=== PATIENT | female | born 1980 | race African-American/Black ===

== ENCOUNTER 2018-12-29 13:09 | Emergency (ER) | payer OTHER ==
[2018-12-29 13:23] VITALS: BMI 36.5
--- NOTE | 2018-12-29 14:53 | PDOC ---
History of Present Illness - General Chief Complaint: Pain Stated Complaint: ABD PAIN, POSSIBLE LMP 12/04/18 Time Seen by Provider: 12/29/18 14:29 History Source: Patient - History of Present Illness Timing/Duration: reports: other Quality: reports: moderate Abdominal Pain Onset Location: reports: suprapubic Past History - Past Medical History Allergies/Adverse Reactions: Allergies Allergy/AdvReac Type Severity Reaction Status Date / Time No Known Allergies Allergy Verified 12/29/18 13:23 Home Medications: Ambulatory Orders NK [No Known Home Medication] 12/29/18 Asthma: Yes Cancer: No Cardiac Disorders: No COPD: No Diabetes: No HTN: No Psychiatric Problems: Yes (depression) Seizures: No Thyroid Disease: No - Reproductive History (#): 5 Para: 4 - Suicide/Smoking/Psychosocial Hx Smoking Status: Yes Smoking History: Never smoked Number of Cigarettes Smoked Daily: 5 Information on smoking cessation initiated: No Hx Alcohol Use: No Drug/Substance Use Hx: No Substance Use Type: None Hx Substance Use Treatment: No Review of Systems - Review of Systems Constitutional: No: Chills, Fever ABD/GI: Yes: Abdominal cramping. No: Constipated, Diarrhea, Nausea, Vomiting : No: Burning, Dysuria, Flank Pain, Hematuria *Physical Exam - Vital Signs Last Vital Signs Temp Pulse Resp BP Pulse Ox 97.3 F L 85 19 144/87 100 12/29/18 13:20 12/29/18 13:20 12/29/18 13:20 12/29/18 13:20 12/29/18 13:20 - Physical Exam General Appearance: Yes: Appropriately Dressed. No: Apparent Distress HEENT: positive: Normal Voice Neck: positive: Supple Respiratory/Chest: negative: Respiratory Distress Gastrointestinal/Abdominal: positive: Normal Bowel Sounds, Tender, Soft. negative: Distended, Guarding, Rebound Musculoskeletal: negative: CVA Tenderness Integumentary: positive: Dry, Warm Neurologic: positive: Fully Oriented, Alert, Normal Mood/Affect Moderate Sedation - Procedure Monitoring Vital Signs: Procedure Monitoring Vital Signs Temperature 97.3 F L 12/29/18 13:20 Pulse Rate 85 12/29/18 13:20 Respiratory Rate 19 12/29/18 13:20 Blood Pressure 144/87 12/29/18 13:20 O2 Sat by Pulse Oximetry (%) 100 12/29/18 13:20 ED Treatment Course - LABORATORY CBC & Chemistry Diagram: 12/29/18 16:37 12/29/18 16:37 - RADIOLOGY Radiology Studies Ordered: Category Date Time Status TRANSVAGINAL US PREG [US] Stat Ultrasound 12/29/18 14:32 Ordered Medical Decision Making - Medical Decision Making 12/29/18 14:50 38 yo morbidly obesed F, , states she has been having intermittent LLQ pain 1 week. No dysuria, hematuria, nausea, vomiting, fever, chills or change in bowel movements. States she went to [facility] last week and was told she was , but no ultrasound was done so here requesting ultrasound See exam Persistent LLQ pain +preg test at [facility] last week per pt but no US done per pt Stable and well shalini w/ +ttp to LLQ R/o ectopic -labs -US 12/29/18 15:47 Beta quant neg here. UA w/ no e/o infection. Pt informed and continues to c/o LLQ pain. Will perform further w/u in ED including CT scan r/o diverticulitis 12/29/18 19:10 Pt signed out to BETTY Jain pending CT read *DC/Admit/Observation/Transfer Diagnosis at time of Disposition: Abdominal pain Qualifiers: Abdominal location: unspecified location Qualified Code(s): R10.9 - Unspecified abdominal pain - Referrals Referrals: Paula Kan [Primary Care Provider] - - Patient Instructions Additional Instructions: Y - Post Discharge Activity
[2018-12-29 15:26] LABS: URINE APPEARANCE SLCLOUDY; URINE BILIRUBIN NEGATIVE (<2.0 mg/dL); URINE COLOR YELLOW; URINE GLUCOSE (UA) NEGATIVE (NEGATIVE); URINE KETONE NEGATIVE (NEGATIVE); URINE LEUK ESTERASE NEGATIVE (NEGATIVE); URINE NITRITE NEGATIVE (NEGATIVE); URINE PROTEIN 1+ (NEGATIVE)
[2018-12-29 15:27] LABS: EPI CELLS MODERATE /HPF (FEW); URINE MUCUS RARE
[2018-12-29] MEDS ORDERED: ACETAMINOPHEN 1000 MG/100 ML VIAL (NON FORMULARY) IVPB ONE (16:38)
[2018-12-29] MEDS ORDERED: ACETAMINOPHEN INJECTION 100 ML IVPB ONE (16:42)
[2018-12-29 16:46] LABS: BASO % 0.6 % (0-2.0); EOS % 1.6 % (0-4.5); HEMATOCRIT 37.3 % (32.4-45.2); HEMOGLOBIN 12.2 GM/dL (10.7-15.3); MCH 29.2 pg (25.7-33.7); MCHC 32.8 g/dl (32.0-36.0); MEAN PLT VOLUME 7.9 fl (7.5-11.1); MONO % 6.2 % (3.8-10.2); NEUT % 37.6 % (42.8-82.8); PLATELET COUNT 241 K/MM3 (134-434); RBC 4.19 M/mm3 (3.60-5.2); RDW 16.1 % (11.6-15.6); WHITE BLOOD COUNT 4.9 K/mm3 (4.0-10.0)
[2018-12-29 17:08] LABS: ALBUMIN 3.4 g/dl (3.4-5.0); ALK PHOS 67 U/L (45-117); ANION GAP 6 MMOL/L (8-16); BILIRUBIN,TOTAL 0.3 mg/dL (0.2-1); BLOOD UREA NITROGEN 9 mg/dL (7-18); CALCIUM 8.4 mg/dL (8.5-10.1); CHLORIDE 105 mmol/L (98-107); CO2 30 mmol/L (21-32); CREATININE 0.8 mg/dL (0.55-1.3); GLUCOSE,RANDOM 81 mg/dL (74-106); POTASSIUM 4.1 mmol/L (3.5-5.1); SGOT/AST 20 U/L (15-37); SGPT/ALT 19 U/L (13-61); SODIUM 140 mmol/L (136-145); TOT PROT 7.8 g/dl (6.4-8.2)
--- NOTE | 2018-12-29 20:32 | PDOC ---
*Physical Exam - Vital Signs Last Vital Signs Temp Pulse Resp BP Pulse Ox 97.8 F 83 20 135/89 100 12/29/18 18:34 12/29/18 18:34 12/29/18 18:34 12/29/18 18:34 12/29/18 18:34 - Physical Exam General Appearance: Yes: Appropriately Dressed Respiratory/Chest: positive: Lungs Clear, Normal Breath Sounds, Respiratory Distress Gastrointestinal/Abdominal: positive: Normal Bowel Sounds, Tender, Soft ED Treatment Course - LABORATORY CBC & Chemistry Diagram: 12/29/18 16:37 12/29/18 16:37 - ADDITIONAL ORDERS Additional order review: Laboratory Results 12/29/18 12/29/18 12/29/18 16:37 15:00 15:00 Sodium 140 Potassium 4.1 Chloride 105 Carbon Dioxide 30 Anion Gap 6 L BUN 9 Creatinine 0.8 Creat Clearance w eGFR > 60 Random Glucose 81 Calcium 8.4 L Total Bilirubin 0.3 AST 20 ALT 19 Alkaline Phosphatase 67 Total Protein 7.8 Albumin 3.4 Beta HCG, Quant < 1.0 Urine Color Yellow Urine Appearance Slcloudy Urine pH 8.0 D Ur Specific Ina 1.021 Urine Protein 1+ H Urine Glucose (UA) Negative Urine Ketones Negative Urine Blood Negative Urine Nitrite Negative Urine Bilirubin Negative Urine Urobilinogen 2.0 H Ur Leukocyte Esterase Negative Urine WBC (Auto) <1 Urine RBC (Auto) 1 Ur Epithelial Cells Moderate Urine Mucus Rare 12/29/18 16:37 RBC 4.19 MCV 89.0 MCHC 32.8 RDW 16.1 H MPV 7.9 Neutrophils % 37.6 L D Lymphocytes % 54.0 H D Monocytes % 6.2 Eosinophils % 1.6 Basophils % 0.6 - Medications Given in the ED: ED Medications Discontinued Medications Generic Name Dose Route Start Last Admin Trade Name Freq PRN Reason Stop Dose Admin Acetaminophen 1,000 mg 12/29/18 16:38 12/29/18 16:45 Ofirmev Injection - IVPB 12/29/18 16:39 1,000 mg ONCE ONE Administration Medical Decision Making - Medical Decision Making 12/29/18 20:27 CT abdomen no acute finding. incidental findings discussed. will d/c home. stool burden noted. 12/29/18 20:28 miralax prescribed. patient d/c home. 12/29/18 20:55 *DC/Admit/Observation/Transfer Diagnosis at time of Disposition: Constipation Abdominal pain Qualifiers: Abdominal location: unspecified location Qualified Code(s): R10.9 - Unspecified abdominal pain - Discharge Dispostion Disposition: HOME - Prescriptions Prescriptions: Polyethylene Glycol 3350 [Miralax (For Daily Use) -] 17 gm PO DAILY #1 bottle - Referrals Referrals: Paula Kan [Primary Care Provider] - Call tomorrow - Patient Instructions Printed Discharge Instructions: Bulking Up on Fiber Additional Instructions: drink plenty of fluids. take miralax as prescribed. follow up with your doctor Additional Instructions: * Please call your personal physician to report your Emergency Department visit and to report your progress, if any. * If there is no improvement in symptoms in 2 days call your physician. * Return to the Emergency Department for any worsening symptoms. - Post Discharge Activity Forms/Work/School Notes: Back to Work
[2018-12-29 20:50] VITALS: BP 129/79; PULSE 79; TEMP 97.9
== END 2018-12-29 21:09 | disposition home or self-care (01) ==
LOC: JER 13:09
PROC: 3E033NZ Introduction of Analgesics, Hypnotics, Sedatives into Peripheral Vein, Percutaneous Approach (ICD-10-PCS; principal; 2018-12-29)
DX: R10.9 Unspecified abdominal pain (principal); F32.9 Major depressive disorder, single episode, unspecified; J45.909 Unspecified asthma, uncomplicated; Z87.891 Personal history of nicotine dependence
CPT/HCPCS: 36415; 74177-TC; 80053; 81003; 81015; 84702; 85025; 99282-25; J0131

== ENCOUNTER 2019-08-17 17:31 | Emergency (ER) | payer OTHER ==
[2019-08-17 17:35] VITALS: TEMP 98; BMI 49.3
[2019-08-17] MEDS ORDERED: ACETAMINOPHEN 325 MG TABLET (FP) PO ONE (18:36)
[2019-08-17] MEDS ORDERED: ACETAMINOPHEN 325 MG TABLET (FP) ONE (18:46)
[2019-08-17 19:19] LABS: BASO % 0.8 % (0-2.0); EOS % 4.8 % (0-4.5); HEMATOCRIT 33.9 % (32.4-45.2); HEMOGLOBIN 10.6 GM/dL (10.7-15.3); LYMPH % 39.6 % (8-40); MCH 27.9 pg (25.7-33.7); MCHC 31.4 g/dl (32.0-36.0); MEAN CELL VOLUME 89.1 fl (80-96); MEAN PLT VOLUME 8.2 fl (7.5-11.1); MONO % 5.4 % (3.8-10.2); NEUT % 49.4 % (42.8-82.8); PLATELET COUNT 275 K/MM3 (134-434); WHITE BLOOD COUNT 7.6 K/mm3 (4.0-10.0)
--- NOTE | 2019-08-17 19:34 | PDOC ---
History of Present Illness - General Chief Complaint: Pain Stated Complaint: STOMACH PAIN Time Seen by Provider: 08/17/19 17:56 History Source: Patient Exam Limitations: No Limitations Past History - Past Medical History Allergies/Adverse Reactions: Allergies Allergy/AdvReac Type Severity Reaction Status Date / Time No Known Allergies Allergy Verified 08/17/19 17:34 Home Medications: Ambulatory Orders Albuterol Sulfate Inhaler - [Ventolin HFA Inhaler -] 2 puff PO PRN 08/17/19 Budesonide/Formeterol Fumarate [SYMBICORT 160/4.5mcg -] 2 inh PO BID 08/17/19 Asthma: Yes Cancer: No Cardiac Disorders: No COPD: No Diabetes: No HTN: No Psychiatric Problems: Yes (depression) Seizures: No Thyroid Disease: No - Reproductive History (#): 5 Para: 4 - Psycho Social/Smoking Cessation Hx Smoking Status: Yes Smoking History: Never smoked Number of Cigarettes Smoked Daily: 5 Information on smoking cessation initiated: No Hx Alcohol Use: No Drug/Substance Use Hx: No Substance Use Type: None Hx Substance Use Treatment: No *Physical Exam - Vital Signs Last Vital Signs Temp Pulse Resp BP Pulse Ox 98 F 87 19 124/86 100 08/17/19 17:33 08/17/19 17:33 08/17/19 17:33 08/17/19 17:33 08/17/19 17:33 - Physical Exam General Appearance: No: Apparent Distress Respiratory/Chest: positive: Lungs Clear, Normal Breath Sounds. negative: Respiratory Distress Cardiovascular: positive: Regular Rhythm, Regular Rate, S1, S2. negative: Murmur Female Pelvic Exam: negative: adnexal tenderness Gastrointestinal/Abdominal: positive: Normal Bowel Sounds, Soft. negative: Tender, Distended, Guarding, Rebound Musculoskeletal: negative: CVA Tenderness Neurologic: positive: Alert, Normal Mood/Affect ED Treatment Course - LABORATORY CBC & Chemistry Diagram: 08/17/19 18:45 08/17/19 18:45 - Medications Given in the ED: ED Medications Discontinued Medications Generic Name Dose Route Start Last Admin Trade Name Freq PRN Reason Stop Dose Admin Acetaminophen 975 mg 08/17/19 18:36 08/17/19 18:45 Tylenol - PO 08/17/19 18:37 975 mg ONCE ONE Administration Medical Decision Making - Medical Decision Making 38 y/o F hx of asthma presents with LLQ pain x 1 week, slightly relieved with Tylenol. Denies fever, sob, cp, n/v/d, urinary complaints. Abdominal surgery hx : . LNMP Jul 10. States she has regular cycles so unsure if she may be ; last did a home test 2 months ago which was negative. Denies vaginal bleeding, unusual vaginal d/c. Evaluate for ; if so, r/o ectopic Less suspicious for ovarian torsion, diverticulitis Plan: Labs, urine, Tylenol, reassess 08/17/19 19:31 Labs unremarkable Patient not UA with some pyuria noted, but patient denies urinary complaints so will defer treatment On repeat exam, abdomen soft, NT Patient states she is not constipated, having regular BMs; is also to eat and drink normally Patient had CT A/P 12/2018 with no acute findings; does not want repeat CT imaging done Return precautions given stable for dc 08/17/19 20:52 Discharge - Discharge Information Problems reviewed: Yes Clinical Impression/Diagnosis: LLQ pain Condition: Stable Disposition: HOME - Admission No - Additional Discharge Information Prescription Drug Monitoring Program (I-STOP) results: I-STOP not reviewed - Follow up/Referral Referrals: Paula Kan [Primary Care Provider] - 2 Days - Patient Discharge Instructions Patient Printed Discharge Instructions: DI for Abdominal Pain-Adult Additional Instructions: Thank you for choosing [facility]. It was a pleasure taking care of you. Your labs were unremarkable Please follow-up with your doctor in 2 days Return to the Emergency Department if your symptoms worsen or persist, you have fever, shortness of breath, chest pain, severe abdominal pain, vomiting or other concerning symptoms. - Post Discharge Activity
[2019-08-17 20:10] LABS: ALBUMIN 3.1 g/dl (3.4-5.0); BILIRUBIN,TOTAL 0.3 mg/dL (0.2-1); BLOOD UREA NITROGEN 10.6 mg/dL (7-18); CALCIUM 8.4 mg/dL (8.5-10.1); CREATININE 0.7 mg/dL (0.55-1.3); POTASSIUM 4.2 mmol/L (3.5-5.1)
[2019-08-17 20:15] LABS: EPI CELLS 8.4 /HPF (0-5/HPF); HYALINE CASTS 19 /lpf (0-8); URINE APPEARANCE CLEAR; URINE BACTERIA 399.7 /hpf (NEGATIVE); URINE BILIRUBIN NEGATIVE (NEGATIVE); URINE COLOR YELLOW; URINE GLUCOSE (UA) NEGATIVE (NEGATIVE); URINE KETONE NEGATIVE (NEGATIVE); URINE LEUK ESTERASE 1+ (NEGATIVE); URINE NITRITE NEGATIVE (NEGATIVE); URINE PROTEIN NEGATIVE (NEGATIVE); URINE WBC 32 /hpf (0-5)
[2019-08-17 20:22] LABS: URINE RBC 0-4 /hpf (0-4)
[2019-08-17 21:26] VITALS: BP 117/75; PULSE 90
== END 2019-08-17 21:26 | disposition home or self-care (01) ==
LOC: JER 17:31
DX: R10.32 Left lower quadrant pain (principal)
CPT/HCPCS: 36415; 80053; 81003; 84702; 84703; 85025; 87086; 87186; 99283-25